=== PATIENT | male | born 1980 | race Hispanic/Latino ===

== ENCOUNTER 2024-03-02 16:27 | Emergency (ER) | payer SELFPAY ==
[2024-03-02 16:39] VITALS: BP 151/87
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
[2024-03-02] MEDS: MOTRIN 600 MG PO (18:53)
== END 2024-03-02 19:39 | disposition home or self-care (01) ==
LOC: EMR 16:27
PROVIDERS: EMERGENCY PHYSICIAN Emergency Medicine
DX: S62.645A Nondisplaced fracture of proximal phalanx of left ring finger, initial encounter for closed fracture (principal); V89.2XXA Person injured in unspecified motor-vehicle accident, traffic, initial encounter; Y92.410 Unspecified street and highway as the place of occurrence of the external cause
CPT/HCPCS: 99283; 29130; 72100; 73130